=== PATIENT | female | born 1945 | race Caucasian/White ===

== ENCOUNTER 2021-11-23 18:23 | Emergency (ER) | payer MEDICARE, OTHER ==
[~2021-11-23] VITALS: Ht 160 cm; Wt 80.7 kg
[~2021-11-23 18:23] MED LIST: ATOR80TA; CALC500T30; CARV6.252; CHOL2000; CLOP75TA; OMG1KC; POTA10TA36 PO; PRAM0.252; TRIA1TAB2
--- NOTE | 2021-11-23 18:46 | ED General ---
General Stated Complaint: L SIDE NECK SWELLING Source of Information: Patient History of Present Illness Date Seen by Provider: Nov 23, 2021 Time Seen by Provider: 18:42 Initial Comments PT ARRIVES VIA POV STATES SHE JUST NOTICED SOME SWELLING TO THE LEFT SIDE OF HER NECK/JAW YESTERDAY--IS MORE SWOLLEN TODAY STATES "IT'S LIKE I'VE GOT MUMPS BUT I ALREADY HAD THEM A KID" NO PAIN NO INJURY OR UNUSUAL ACTIVITY NO DIFFICULTY SWALLOWING OR CHEWING OR BREATHING NO FEVER OR RECENT ILLNESS. NO SORE THROAT OR MOUTH/DENTAL PAIN NO HISTORY OF SIMILAR STATES SHE IS HERE VISITING FROM [place]. HAS BEEN OUT IN THE HEAT SOME THIS WEEK AND NOT DRINKING MUCH WATER HAS HAD COVID VACCINE X 4 PCP--DR. VILLAFANA IN [place] Allergies and Home Medications Allergies Uncoded Allergies: NKDA (Allergy, Mild, 09/16/08) Patient Home Medication List Home Medication List Reviewed: Yes Amoxicillin/Potassium Clav (Amox Tr-K Clv 875-125 mg Tab) 875 Mg-125 Mg Tablet, 1 EACH PO BID Prescribed by: CODIE RICHARDSON on 11/23/212008 Atorvastatin Calcium (Lipitor 80MG) 80 Mg Tablet, (Reported) Entered as Reported by: WILLIAM OCHOA on 09/16/081826 Calcium Carbonate (Gaviscon) 500 Mg Tab.chew, (Reported) Entered as Reported by: WILLIAM OCHOA on 09/16/08 183 Carvedilol (Carvedilol) 6.25 Mg Tablet, (Reported) Entered as Reported by: WILLIAM OCHOA on 09/16/08 182 Cholecalciferol (Vitamin D) 2,000 Unit Capsule, (Reported) Entered as Reported by: WILLIAM OCHOA on 09/16/08 183 Clopidogrel Bisulfate (Plavix 75 Mg) 75 Mg Tablet, (Reported) Entered as Reported by: WILLIAM OCHOA on 09/16/081826 Evans 3 Polyunsat Fatty Acids (Fish Oil) 1,000 Mg Cap, (Reported) Entered as Reported by: WILLIAM OCHOA on 09/16/081828 Potassium Chloride (K-Dur) 10 Meq Tab.prt.sr, 1 EACH PO BID WITH MEALS Prescribed by: ZOILA REYNOSO on 09/16/082031 Pramipexole Di-Hcl (Mirapex) 0.25 Mg Tablet, (Reported) Entered as Reported by: WILLIAM OCHOA on 09/16/081828 Triamterene/Hctz (Maxide) 37.5 Mg/25 Mg Tab, (Reported) Entered as Reported by: WILLIAM OCHOA on 09/16/081827 Review of Systems Review of Systems Constitutional: no symptoms reported EENTM: see HPI Respiratory: no symptoms reported Cardiovascular: no symptoms reported Gastrointestinal: no symptoms reported Genitourinary: no symptoms reported Musculoskeletal: no symptoms reported Skin: no symptoms reported Psychiatric/Neurological: No Symptoms Reported Hematologic/Lymphatic: No Symptoms Reported Immunological/Allergic: no symptoms reported Past Oyvivlq-Vviqoz-Uhpfif Hx Patient Social History Tobacco Use?: Yes Tobacco type used: Cigarettes Smoking Status: Former Smoker Substance use?: No Alcohol Use?: Yes Alcohol Frequency: Couple times a week Past Medical History Surgeries: Yes Eye Surgery, Gallbladder, Orthopedic, Tubal Ligation, Vascular Surgery Respiratory: No Cardiac: Yes (CAROTID DISEASE) High Cholesterol, Hypertension Neurological: Yes (CVA 2007-LEFT SIDE WEAKNESS RESOLVED) 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 ) Gastrointestinal: No Musculoskeletal: Yes Degenerate Disk Disease, Fractures Endocrine: No HEENT: Yes (DECREASED HEARING ON LEFT-HAS HEARING AID BUT DOES NOT WEAR IT;CORNEAL DZ) Cataract Hearing Impairment: Hard of Hearing Cancer: No Psychosocial: No Integumentary: No Blood Disorders: No Family Medical History SOCIAL HISTORY: -SMOKED 1 PPD, QUIT 2007 -[facility]--DRINKS A COUPLE OF DRINKS A WEEK -DRUGS--DENIES USE PAST SURGICAL HISTORY: -BILATERAL CATARACT SURGERY -BILATERAL CORNEAL TRANSPLANT SURGERY -RIGHT CAROTID ENDARTERECTOMY -CERVICAL SPINE DISCECTOMY AND FUSION -LEFT HUMERUS FX/ORIF -CHOLECYSTECTOMY -BILATERAL TUBAL LIGATION -COLONOSCOPIES--LAST ONE 03/2021--NORMAL PER PT -CAROTID ULTRASOUNDS--LAST ONE WAS IN SEPTEMBER 2021. Physical Exam Vital Signs Vital Signs - First Documented 11/23/21 11/23/21 18:34 21:07 Temp 36.7 Pulse 109 Resp 17 B/P (MAP) 129/85 (100) Pulse Ox 98 O2 Delivery Room Air Capillary Refill : Height, Weight, BMI Height: '" Weight: lbs. oz. kg; BMI Method: General Appearance: No Apparent Distress, WD/WN HEENT: PERRL/EOMI, Normal ENT Inspection, Pharynx Normal, Moist Mucous Membranes, Other (MILD SWELLING TO LEFT PAROTID GLAND AREA. NO ERYTHEMA, NO WARMTH, NO TENDERNESS. ) Neck: Full Range of Motion, Non Tender, Supple, Other ( ABOVE) Respiratory: Normal Breath Sounds, No Accessory Muscle Use, No Respiratory Distress Cardiovascular: Regular Rate, Rhythm, No Edema, No JVD, No Murmur Neurologic/Psychiatric: Alert, Oriented x3, No Motor/Sensory Deficits, Normal Mood/Affect, fisher diver net II-XII Norm as Tested Skin: Normal Color, Warm/Dry; No Rash Progress/Results/Core Measures Suspected Sepsis SIRS Temperature: Pulse: Respiratory Rate: Laboratory Tests 11/23/21 18:46: White Blood Count 7.4 Blood Pressure / Mean: Laboratory Tests 11/23/21 18:46: Creatinine 1.25, INR Comment 0.9, Platelet Count 270, Total Bilirubin 0.4 Results/Orders Lab Results Laboratory Tests Test 11/23/21 18:46 Range/Units White Blood Count 7.4 4.3-11.0 10^3/uL Red Blood Count 4.48 3.80-5.11 10^6/uL Hemoglobin 12.8 11.5-16.0 g/dL Hematocrit 39 35-52 % Mean Corpuscular Volume 86 80-99 fL Mean Corpuscular Hemoglobin 29 25-34 pg Mean Corpuscular Hemoglobin Concent 33 32-36 g/dL Red Cell Distribution Width 14.2 10.0-14.5 % Platelet Count 270 130-400 10^3/uL Mean Platelet Volume 8.9 L 9.0-12.2 fL Immature Granulocyte % (Auto) 1 % Neutrophils (%) (Auto) 63 42-75 % Lymphocytes (%) (Auto) 28 12-44 % Monocytes (%) (Auto) 5 0-12 % Eosinophils (%) (Auto) 2 0-10 % Basophils (%) (Auto) 1 0-10 % Neutrophils # (Auto) 4.6 1.8-7.8 10^3/uL Lymphocytes # (Auto) 2.1 1.0-4.0 10^3/uL Monocytes # (Auto) 0.4 0.0-1.0 10^3/uL Eosinophils # (Auto) 0.2 0.0-0.3 10^3/uL Basophils # (Auto) 0.1 0.0-0.1 10^3/uL Immature Granulocyte # (Auto) 0.1 0.0-0.1 10^3/uL Erythrocyte Sedimentation Rate 25 0-30 MM/HR Prothrombin Time 12.0 L 12.2-14.7 SEC INR Comment 0.9 0.8-1.4 Activated Partial Thromboplast Time 29 24-35 SEC Sodium Level 132 L 135-145 MMOL/L Potassium Level 4.1 3.6-5.0 MMOL/L Chloride Level 94 L 98-107 MMOL/L Carbon Dioxide Level 25 21-32 MMOL/L Anion Gap 13 5-14 MMOL/L Blood Urea Nitrogen 28 H 7-18 MG/DL Creatinine 1.25 0.60-1.30 MG/DL Estimat Glomerular Filtration Rate 45 BUN/Creatinine Ratio 22 Glucose Level 158 H 70-105 MG/DL Calcium Level 10.0 8.5-10.1 MG/DL Corrected Calcium 9.8 8.5-10.1 MG/DL Magnesium Level 1.7 1.6-2.4 MG/DL Total Bilirubin 0.4 0.1-1.0 MG/DL Aspartate Amino Transf (AST/SGOT) 19 5-34 U/L Alanine Aminotransferase (ALT/SGPT) 10 0-55 U/L Alkaline Phosphatase 81 40-136 U/L C-Reactive Protein High Sensitivity 0.16 0.00-0.50 MG/DL Total Protein 7.0 6.4-8.2 GM/DL Albumin 4.3 3.2-4.5 GM/DL Amylase Level 407 H 25-125 U/L Lipase 57 8-78 U/L TSH [place] Testing 0.78 0.35-4.94 UIU/ML My Orders Orders - CODIE RICHARDSON DO Ed Iv/Invasive Line Start (11/23/21 18:43) Monitor-Rhythm Ecg Trace Only (11/23/21 18:43) Amylase (11/23/21 18:43) Cbc With Automated Diff (11/23/21 18:43) Comprehensive Metabolic Panel (11/23/21 18:43) Hs C Reactive Protein (11/23/21 18:43) Lipase (11/23/21 18:43) Magnesium (11/23/21 18:43) Protime With Inr (11/23/21 18:43) Partial Thromboplastin Time (11/23/21 18:43) Thyroid Analyzer (11/23/21 18:43) Erythrocyte Sedimentation Rate (11/23/21 18:43) Ct Neck (Soft Tissue) W (11/23/21 19:20) Ed Iv/Invasive Line Start (11/23/21 19:22) Ns Iv 1000 Ml (Sodium Chloride 0.9%) (11/23/21 19:30) Iohexol Injection (Omnipaque 350 Mg/Ml 1 (11/23/21 19:30) Ns (Ivpb) (Sodium Chloride 0.9% Ivpb Bag (11/23/21 19:30) Received Contrast (Hold Metformin- Contr (11/23/21 19:30) Ceftriaxone 1 Gm Pre-Mix (Rocephin 1 Gm (11/23/21 20:00) Ceftriaxone 1 Gm Pre-Mix (Rocephin 1 Gm (11/23/21 20:24) Medications Given in ED Current Medications Medications Dose Ordered Sig/Sofía Route Start Time Stop Time Status Last Admin Dose Admin Ceftriaxone Sodium/Dextrose 50 ml @ 100 mls/hr ONCE ONCE IV 11/23/21 20:00 11/23/21 21:08 DC 11/23/21 20:32 100 MLS/HR Iohexol 100 ml ONCE ONCE IV 11/23/21 19:30 11/23/21 19:32 DC 11/23/21 19:45 75 ML Sodium Chloride 100 ml ONCE ONCE IV 11/23/21 19:30 11/23/21 19:32 DC 11/23/21 19:45 80 ML Vital Signs/I&O 11/23/21 11/23/21 18:34 21:07 Temp 36.7 36.7 Pulse 109 75 Resp 17 16 B/P (MAP) 129/85 (100) 120/47 Pulse Ox 98 O2 Delivery Room Air Room Air Capillary Refill : Progress Note : Progress Note UNEVENTFUL ER STAY DISCUSSED ANTICIPATED COURSE, AND THAT SHE NEEDS TO FOLLOW UP WITH HER PCP IN [place] NEXT WEEK FOR FURTHER CARE, WITH RETURN PRECAUTIONS SUCH FEVER, PAIN, DIFFICULTY OPENING MOUTH, ETC. Diagnostic Imaging Comments CT NECK SOFT TISSUES--PER RADIOLOGIST REPORT AT 1999 FINDINGS: There is abnormal fat stranding and induration demonstrated about the left parotid gland. This is likely related to a sialoadenitis. There is no intraglandular mass or ductal dilatation evident. There is no finding of a radiodense stone within the parotid duct. The right parotid gland and the submandibular glands appear normal. There is no free fluid or evidence of abscess. The visualized intracranial contents demonstrate no mass effect or abnormal enhancement. The orbits are unremarkable. The paranasal sinuses and the mastoids are clear. The posterior nasopharynx and oropharynx are symmetric. There is no displacement of the paravertebral fat planes. Base of the tongue is unremarkable. Motion limits assessment of the epiglottis folds. There is no pathologic cervical lymphadenopathy evident. There are carotid calcifications. Note is made of prior cervical ACDF of C5-C7. The lung apices appear clear. IMPRESSION: 1. Abnormal inflammatory stranding and induration about the left parotid gland suggests a left-sided parotid sialoadenitis. There is no finding of a stone or ductal dilatation. There is no intraglandular mass. No finding of an abscess. 2. There are motion limitations of the hypopharynx and larynx, the visualized portions of the aerodigestive tract are appropriately symmetric. 3. No pathologic cervical lymphadenopathy evident. 4. Atherosclerosis. 5. Previous cervical ACDF of C5-C7 with background features of degenerative disc disease and facet arthropathy. Reviewed: Reviewed by Me Departure Impression Primary Impression: Swelling of left parotid gland Additional Impressions: Acute sialoadenitis Mild dehydration Disposition: 01 HOME, SELF-CARE Condition: Stable Departure-Patient Inst. Decision time for Depature: 20:02 Referrals: NO,LOCAL PHYSICIAN (PCP/Family) Primary Care Physician Patient Instructions: Salivary Gland Infection (DC), Salivary Gland Stones, Dehydration, Adult ED Add. Discharge Instructions: SUCK ON SOUR CANDIES SUCH LEMON DROPS, OR [place] OR LIMES INCREASE YOUR FLUID INTAKE CONTINUE YOUR REGULAR MEDICATIONS PRESCRIBED. FOLLOW UP WITH YOUR DR NEXT WEEK FOR FURTHER CARE Scripts Amoxicillin/Potassium Clav (Amox Tr-K Clv 875-125 mg Tab) 875 Mg-125 Mg Tablet 1 EACH PO BID for 10 Days, #20 TAB Prov: CODIE RICHARDSON DO 11/23/21 CODIE RICHARDSON DO Nov 23, 2021 18:45
[2021-11-23 18:55] LABS: BASOPHILS # (AUTO) 0.1 10^3/uL (0.0-0.1); BASOPHILS % (AUTO) 1 % (0-10); EOSINOPHILS # (AUTO) 0.2 10^3/uL (0.0-0.3); EOSINOPHILS % (AUTO) 2 % (0-10); HEMATOCRIT 39 % (35-52); HEMOGLOBIN 12.8 g/dL (11.5-16.0); LYMPHOCYTES # (AUTO) 2.1 10^3/uL (1.0-4.0); LYMPHOCYTES % (AUTO) 28 % (12-44); MEAN CORPUSCULAR HEMOGLOBIN 29 pg (25-34); MEAN CORPUSCULAR HGB CONC 33 g/dL (32-36); MEAN CORPUSCULAR VOLUME 86 fL (80-99); MEAN PLATELET VOLUME 8.9 fL (9.0-12.2); MONOCYTES # (AUTO) 0.4 10^3/uL (0.0-1.0); MONOCYTES % (AUTO) 5 % (0-12); NEUTROPHILS # (AUTO) 4.6 10^3/uL (1.8-7.8); NEUTROPHILS % (AUTO) 63 % (42-75); PLATELET COUNT 270 10^3/uL (130-400); WHITE BLOOD COUNT 7.4 10^3/uL (4.3-11.0)
[2021-11-23 19:05] LABS: INR 0.9 (0.8-1.4)
[2021-11-23 19:12] LABS: ALBUMIN 4.3 GM/DL (3.2-4.5); BILIRUBIN,TOTAL 0.4 MG/DL (0.1-1.0); CREATININE SERUM 1.25 MG/DL (0.60-1.30); MAGNESIUM 1.7 MG/DL (1.6-2.4); POTASSIUM 4.1 MMOL/L (3.6-5.0)
[2021-11-23 19:13] LABS: ERYTHROCYTE SEDIMENTATION RATE 25 MM/HR (0-30)
[2021-11-23] MEDS ORDERED: IOHEXOL 350 MG/ML 100 ML (OMNIPAQUE 350) VIAL IV ONE (19:30)
[2021-11-23] MEDS ORDERED: NS IV 1000 ML 1,000 ML IV SCH (19:30)
[2021-11-23] MEDS ORDERED: HOLD METFORMIN - RECEIVED CONTRAST 20 ML VIAL IV SCH (19:30)
[2021-11-23] MEDS ORDERED: NS 100 ML (IVPB) BAG IV ONE (19:30)
[2021-11-23 19:32] LABS: TSH (THYROID ANALYZER) 0.78 UIU/ML (0.35-4.94)
--- NOTE | 2021-11-23 19:57 | Diagnostic Imaging Report ---
PROCEDURE: CT neck soft tissue with contrast. TECHNIQUE: Multiple contiguous axial images were obtained through the neck after the administration of contrast. Auto Exposure Controls were utilized during the CT exam to meet ALARA standards for radiation dose reduction. INDICATION: Left jaw and neck swelling. FINDINGS: There is abnormal fat stranding and induration demonstrated about the left parotid gland. This is likely related to a sialoadenitis. There is no intraglandular mass or ductal dilatation evident. There is no finding of a radiodense stone within the parotid duct. The right parotid gland and the submandibular glands appear normal. There is no free fluid or evidence of abscess. The visualized intracranial contents demonstrate no mass effect or abnormal enhancement. The orbits are unremarkable. The paranasal sinuses and the mastoids are clear. The posterior nasopharynx and oropharynx are symmetric. There is no displacement of the paravertebral fat planes. Base of the tongue is unremarkable. Motion limits assessment of the epiglottis folds. There is no pathologic cervical lymphadenopathy evident. There are carotid calcifications. Note is made of prior cervical ACDF of C5-C7. The lung apices appear clear. IMPRESSION: 1. Abnormal inflammatory stranding and induration about the left parotid gland suggests a left-sided parotid sialoadenitis. There is no finding of a stone or ductal dilatation. There is no intraglandular mass. No finding of an abscess. 2. There are motion limitations of the hypopharynx and larynx, the visualized portions of the aerodigestive tract are appropriately symmetric. 3. No pathologic cervical lymphadenopathy evident. 4. Atherosclerosis. 5. Previous cervical ACDF of C5-C7 with background features of degenerative disc disease and facet arthropathy. Dictated by: Dictated on workstation # [id number]
[2021-11-23] MEDS ORDERED: cefTRIAXone 1 GM PRE-MIX 50 ML IV ONE ×2 (20:00→20:24)
[2021-11-23] MEDS ORDERED: AMOX1TAB12 PO (20:09)
[2021-11-23 21:07] VITALS: BP 120/47
== END 2021-11-23 21:07 | disposition home or self-care (01) ==
LOC: EDUNIT# 18:23 → ER 18:27
DX: K11.21 Acute sialoadenitis (principal); E86.0 Dehydration; Z87.891 Personal history of nicotine dependence
CPT/HCPCS: 36415; 70491; 80053; 82150; 83690; 83735; 84443; 85025; 85610; 85652; 85730; 86141; 93041